=== PATIENT | male | born 1960 | race Caucasian/White ===

== ENCOUNTER 2016-10-24 16:23 | Emergency (ER) | payer OTHER ==
[2016-10-24 16:27] VITALS: BP 156/72
--- NOTE | 2016-10-24 17:08 | ED ---
Throat Pain/Nasal Congestion - HPI Summary HPI Summary: 56M presents with sawdust in left eye. 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 He states that it feels like it is at the bottom of his vision. He denies any change in vision. He admits to foreign body sensation. He has tearing the eye. He does not wear any contacts. He has no allergies. He has no history of trauma to the eye or eye problems but does wear glasses. He was not wearing safety glasses at the times. - History of Current Complaint Chief Complaint: EDEyeProblem Time Seen by Provider: 10/24/16 16:33 - Allergies/Home Medications Allergies/Adverse Reactions: Allergies Allergy/AdvReac Type Severity Reaction Status Date / Time No Known Allergies Allergy Verified 04/08/14 07:48 PMH/Surg Hx/FS Hx/Imm Hx Endocrine/Hematology History: Denies: Hx Anticoagulant Therapy Musculoskeletal History: Denies: Hx Scoliosis Sensory History: Reports: Hx Contacts or Glasses Neurological History: Reports: Other Neuro Impairments/Disorders - PAIN RADIATING DOWN RT. LEG FOR THE PAST WK. Denies: Hx Headaches Infectious Disease History: No Infectious Disease History: Denies: Traveled Outside the [place] in Last 30 Days - Family History Known Family History: Positive: Cardiac Disease - Social History Alcohol Use: Rare Substance Use Type: Reports: None Smoking Status (MU): Never Smoked Tobacco Review of Systems Negative: Fever Positive: Drainage, Other - eye left foreign body sensation. Negative: Blurred Vision Negative: Chest Pain Negative: Shortness Of Breath All Other Systems Reviewed And Are Negative: Yes Physical Exam Triage Information Reviewed: Yes Vital Signs On Initial Exam: Initial Vitals Temp Pulse Resp BP Pulse Ox 99.4 F 89 16 156/72 98 10/24/16 16:25 10/24/16 16:25 10/24/16 16:25 10/24/16 16:25 10/24/16 16:25 Vital Signs Reviewed: Yes Appearance: Positive: Well-Appearing Skin: Positive: Warm, Dry Head/Face: Positive: Normal Head/Face Inspection Eyes: Positive: EOMI, ALEXYS, Conjunctiva Inflammed, Discharge - watery, Other: - no foreign body seen ENT: Positive: Normal ENT inspection, Pharynx normal, TMs normal Respiratory/Lung Sounds: Positive: Clear to Auscultation, Breath Sounds Present Cardiovascular: Positive: Normal, RRR Procedures - Eye Procedure Alcaine Drops Administered: Yes - fluorscein exam shows no uptake Diagnostics - Vital Signs Vital Signs Temp Pulse Resp BP Pulse Ox 10/24/16 16:59 98.4 F 89 16 156/72 98 10/24/16 16:25 99.4 F 89 16 156/72 98 - Laboratory Lab Statement: Any lab studies that have been ordered have been reviewed, and results considered in the medical decision making process. EENT Course/Dx - Course Course Of Treatment: 56M presents with saw dust in left eye today. admits to foreign body sensation. denies any change in vision. does not wear contacts. admits to watery discharge. denies any photophobia. no foreign body seen. fluoroscein exam so no uptake. will treat with polytrim due to potential retained foreign body. patient understands and agrees with plan. - Differential Diagnoses Differential Diagnoses: Conjunctivitis, Corneal Abrasion, Foreign Body - Diagnoses Provider Diagnoses: Foreign body of left eye Discharge - Discharge Plan Condition: Good Disposition: HOME Patient Education Materials: Eye Foreign Body (ED) Referrals: Tutu Mayberry MD [Primary Care Provider] - Francis Hilliard MD [Medical Doctor] - Additional Instructions: Place 1 drop in eye 4 times a day for 5 days Use artificial tears or saline to rinse eye for symptomatic relief, can use tetracaine drops but need to dilute it with saline and do not use more than 3 a day Take Tylenol or ibuprofen for pain Follow up with ophthalmology if no improvement in 5 days Return to ED if develop any new or worsening symptoms
[2016-10-24] MEDS ORDERED: Polymyx/Trimethoprim OPTH* 10 ML BTL LEFT EYE ONE (17:30)
== END 2016-10-24 17:20 | disposition home or self-care (01) ==
LOC: ED 16:23
DX: T15.92XA Foreign body on external eye, part unspecified, left eye, initial encounter (principal)
CPT/HCPCS: 99282